=== PATIENT | male | born 1950 | race African-American/Black ===

== ENCOUNTER 2018-04-19 08:39 | Day surgery (SDC) | payer MEDICARE ==
[2018-04-18 10:39] LABS: MCH 34.4 pg (26.0-34.0); MCHC 36.4 g/dL (31.0-37.0); MCV 94.6 fL (80.0-100.0); MEAN PLATELET VOLUME 9.8 fL (7.4-10.4); RBC 4.65 10x6/uL (4.20-6.10); RDW 13.4 % (11.5-14.5); WBC 5.8 10x3/uL (4.8-10.8)
[~2018-04-19] VITALS: Ht 180.3 cm; Wt 101.8 kg
--- NOTE | ~2018-04-19 | OP ---
PATIENT NAME: DIYA RAZO MEDICAL RECORD: [id number] :52 LOCATION:[facility] ADMISSION DATE: SURGEON: JAZLYN MCELROY MD DATE OF OPERATION: 04/19/2018 PREOPERATIVE DIAGNOSIS: Recurrent incisional hernia. POSTOPERATIVE DIAGNOSES: Recurrent incarcerated incisional hernia and extensive intraabdominal adhesions. PROCEDURES: Laparoscopic recurrent incarcerated incisional hernia repair with Ventralight ST mesh utilizing the Echo PS positioning system. Sharp adhesiolysis, the adhesiolysis took 65 minutes. SURGEON: Jazlyn Mcelroy MD DRILL GRINDER: None. BLOOD LOSS: Less than 25 cc. ANESTHESIA: General. COMPLICATIONS: None. DRAINS: Times 1 (10-Wolof closed suction drainage system). The risks, possible complications and alternatives to procedure were explained to the patient. He elects to proceed. The discussion specifically included, but was not limited to, bleeding requiring emergency reoperation, infection, recurrence of the hernia, intestinal injury. The patient has been very unlucky and that he has had multiple recurrences of initially an umbilical hernia and then incisional hernia. I spoke with him prior to the operation. We discussed an open repair versus laparoscopic repair. He has undergone a laparoscopic repair in the past. I recommended to him that we attempt another laparoscopic repair and he agreed. OPERATIVE COURSE: The patient was conveyed to the operating room electively on 04/19/2018. General anesthesia was induced by the anesthesia staff. The abdomen was sterilely prepped and draped. An incision was accomplished in the left upper quadrant. A Veress needle was inserted through the skin eduardo into the peritoneal cavity. CO2 insufflation was begun. Once a sufficient pneumoperitoneum had been achieved, a 12-mm trocar was inserted through the incision in the left upper quadrant. Under direct internal vision utilizing a television camera, two 5-mm trocars were inserted in the right side of the abdomen and one 5-mm trocar was inserted in the left side of the abdomen. During insertion of the Veress needle and all trocars, there appeared to have been no injury to the bowels, any intraperitoneal or retroperitoneal structures. There were numerous adhesions. I then began a meticulous sharp adhesiolysis with the endoscopic gaby. At no time was there any full thickness bowel injury. I was able to reduce the incarcerated contents in their entireties. The incarcerated contents consisted of small bowel. OPERATIVE REPORT [id number] DIYA RAZO There was 1 piece of mesh and perhaps 2 pieces of mesh that were in place. The hernia recurrence was at the side of one of the pieces of mesh to the right, inferior to the umbilicus. Once all the adhesions had been lysed, I then hydrated a Ventralight ST mesh that had the Echo positioning system attached to it. It was advanced down through the 12-mm trocar site. I then made a small skin eduardo within the umbilicus. I advanced a laparoscopic suture passer and brought it into the peritoneal cavity through the hernia defect. I grasped the end of the positioning system and brought up through the abdominal wall. I then cut the positioning system attached to the inflation device and inflated the mesh. I turned down the insufflation to 14. I utilized the OptiFix Tacker and then, the SorbaFix Tacker to complete the herniorrhaphy. The Echo positioning system was then removed in its entirety. I irrigated and aspirated. There was no bleeding. I wanted to place an indicator drain as the patient did have an extensive adhesiolysis and if there was a bowel injury, I wanted to be able to identify it. I advanced a 10-Wolof closed suction drainage system down through the left lower quadrant trocar site. This was sutured to the skin with a nylon suture. At the left upper quadrant trocar site the muscle was closed with the Tk-Demian suture closure device and a 0 Vicryl suture. All the trocars were removed and the abdomen desufflated. The skin at the umbilicus was closed with a single 4-0 Vicryl Rapide suture. The other skin incisions were closed with interrupted intracuticular 3-0 Vicryls. Benzoin and Steri-Strips were applied and then an abdominal binder. The patient was then extubated and conveyed to the post-anesthesia care unit where he was in stable condition. Over in the outpatient department, he began having some sanguinous drainage from the right lower quadrant trocar site. For this reason, we are going to observing him in the hospital overnight to ensure that he does not have significant bleeding. TRANSINT:[id number] Voice Confirmation ID: [id number] DOCUMENT ID: [id number] JAZLYN MCELROY MD at 140 CC: SATINDER MÁRQUEZ MD [id number] DICTATION DATE: 04/19/181956 [employer] INSPECTOR: 04/19/18 [id number] [facility] 04/20/18 [place] [id number] [place] [id number]
[~2018-04-19 08:39] MED LIST: BAYER CHEWABLE81 MG PO; CO Q-10200 MG PO; MULTI-DAY VITAM1 TAB; PRAVACHOL40 MG PO; VITAMIN D31000 UNIT PO; VITAMIN D5000 UNIT PO; [UNRECOGNIZED DRUG - OTHER] PO
[2018-04-19] MEDS ORDERED: FISH OIL 1,0001 CA1 PO (09:20)
[2018-04-19 09:27] VITALS: BP 150/77; BMI 31.4
[2018-04-20 05:00] VITALS: BP 123/76
[2018-04-20 06:00] LABS: BASOPHILS 0 % (0-2); EOSINOPHILS 0 % (0-7); HEMATOCRIT 39.6 % (42.0-54.0); HEMOGLOBIN 14.1 g/dL (13.5-17.5); IMMATURE GRANULOCYTES 0.2 % (0-5); LYMPHOCYTES 10.8 % (15-50); MCH 33.4 pg (26.0-34.0); MCHC 35.6 g/dL (31.0-37.0); MCV 93.8 fL (80.0-100.0); MEAN PLATELET VOLUME 10.5 fL (7.4-10.4); MONOCYTES 8.5 % (2-11); NEUTROPHILS 80.5 % (40-80); PLATELET COUNT 152 10x3/uL (130-400); RBC 4.22 10x6/uL (4.20-6.10); RDW 13.9 % (11.5-14.5)
[2018-04-20 06:20] LABS: ANION GAP 15.6 mmol/L (8-16); BILIRUBIN - TOTAL 0.38 mg/dL (0.2-1.3); CALCIUM 8.3 mg/dL (8.5-10.1); CARBON DIOXIDE 22.7 mmol/L (21.0-32.0); CREATININE - SERUM 1.5 mg/dL (0.6-1.3); MAGNESIUM - SERUM 1.7 mg/dL (1.8-2.4); POTASSIUM - SERUM 4.3 mmol/L (3.5-5.1); PROTEIN - SERUM 7.3 g/dL (6.4-8.2)
[2018-04-20 06:45] LABS: WBC 8.1 10x3/uL (4.8-10.8)
[2018-04-20 06:49] VITALS: Ht 180.3 cm; Wt 101.8 kg
[2018-04-20 08:26] VITALS: BP 135/76
== END 2018-04-20 08:56 | disposition home or self-care (01) ==
LOC: D.OPS 08:39 → D.MS 08:39 → D.OPS 09:45 → D.PAN 10:45 → D.OPS 10:45 → D.MS 20:32 → D.OPS 04-20 08:56
PROVIDERS: Anesthesiology; Surgery
DX: K43.0 Incisional hernia with obstruction, without gangrene (principal); K66.0 Peritoneal adhesions (postprocedural) (postinfection); Z01.812 Encounter for preprocedural laboratory examination